=== PATIENT | female | born 1965 | race Two or more races ===

== ENCOUNTER 2020-06-19 15:06 | Emergency (ER) | payer SELFPAY ==
[~2020-06-19] VITALS: Ht 165.1 cm; Wt 93.0 kg
[2020-06-19 16:52] VITALS: BP 140/86
[2020-06-19] MEDS ORDERED: TETANUS-DIPTH-ACEL PERTUSSIS 0.5ML SYR Tdap IM ONE (18:00)
== END 2020-06-19 18:18 | disposition home or self-care (01) ==
LOC: ER 15:06 → EDBD 15:06 → ER 18:18
DX: S61.217A Laceration without foreign body of left little finger without damage to nail, initial encounter (principal); S61.215A Laceration without foreign body of left ring finger without damage to nail, initial encounter; E11.9 Type 2 diabetes mellitus without complications; I10 Essential (primary) hypertension; W26.8XXA Contact with other sharp object(s), not elsewhere classified, initial encounter; Y93.89 Activity, other specified; Y92.89 Other specified places as the place of occurrence of the external cause; Y99.8 Other external cause status
CPT/HCPCS: 12002; 73130; 90471; 90715; 99283; J7030